=== PATIENT | male | born 1995 | race Two or more races ===

== ENCOUNTER 2017-01-14 19:43 | Emergency (ER) | payer MEDICAID, OTHER ==
[~2017-01-14] VITALS: Ht 177.8 cm; Wt 109.2 kg
[2017-01-14 20:05] VITALS: BP 121/82
[2017-01-14] MEDS ORDERED: SODIUM CHLORIDE 0.9% 1,000ML IVBOLUS ONE (20:30)
[2017-01-14] MEDS ORDERED: ASPIRIN 81 MG TABLET CHEW PO ONE (20:30)
[2017-01-14] MEDS ORDERED: SODIUM CHLORIDE FLUSH 10ML SYR IVF ONE (20:30)
[2017-01-14 20:46] LABS: HEMATOCRIT 52.7 % (39.2-51.8); HEMOGLOBIN 17.9 g/dL (13.7-18.0); WHITE BLOOD COUNT 10.1 x10^3/uL (3.4-10)
[2017-01-14] MEDS ORDERED: ASPIRIN 81 MG TABLET CHEW ONE (20:53)
[2017-01-14 20:59] LABS: BLOOD UREA NITROGEN 13 mg/dL (7-18)
[2017-01-14 21:09] LABS: IS PT STATUS REG ER OR PRE ER? YES
== END 2017-01-14 22:06 | disposition home or self-care (01) ==
LOC: ED 21:45
DX: R42 Dizziness and giddiness (principal)
CPT/HCPCS: 36415; 71020; 80048; 82040; 84484; 85025; 93005; 96360; 96361; 99285; J7030

== ENCOUNTER 2017-01-26 09:00 | Emergency (ER) | payer MEDICAID ==
[~2017-01-26] VITALS: Ht 177.8 cm; Wt 107.5 kg
[2017-01-26] MEDS ORDERED: FAMOTIDINE 20 MG/2 ML ONE (09:58)
[2017-01-26] MEDS ORDERED: SODIUM CHLORIDE FLUSH 10ML SYR IVF ONE (10:00)
[2017-01-26] MEDS ORDERED: SODIUM CHLORIDE 0.9% 1,000ML IVBOLUS ONE (10:00)
[2017-01-26] MEDS ORDERED: FAMOTIDINE 20 MG/2 ML IVPush ONE (10:00)
[2017-01-26 10:24] LABS: HEMATOCRIT 51.7 % (39.2-51.8); WHITE BLOOD COUNT 9.7 x10^3/uL (3.4-10)
[2017-01-26 10:35] LABS: ASPARTATE AMINO TRANSFERASE 21 U/L (15-37); BLOOD UREA NITROGEN 14 mg/dL (7-18)
[2017-01-26 10:38] VITALS: BP 132/89
[2017-01-26 10:40] LABS: IS PT STATUS REG ER OR PRE ER? YES
== END 2017-01-26 11:32 | disposition home or self-care (01) ==
LOC: ED 11:26
DX: R07.89 Other chest pain (principal); K21.0 Gastro-esophageal reflux disease with esophagitis
CPT/HCPCS: 36415; 71020; 80053; 83690; 84484; 85025; 93005; 96361; 96374; 99285; J7030; S0028

== ENCOUNTER 2017-02-25 13:52 | Emergency (ER) | payer MEDICAID ==
[~2017-02-25] VITALS: Ht 177.8 cm; Wt 105.6 kg
[2017-02-25] MEDS ORDERED: OXYMETAZOLINE NASAL SPRAY 0.05%, 15ML ONE (14:50)
[2017-02-25 15:08] LABS: HEMATOCRIT 56.7 % (39.2-51.8); HEMOGLOBIN 19.1 g/dL (13.7-18.0); WHITE BLOOD COUNT 10.5 x10^3/uL (3.4-10)
[2017-02-25] MEDS ORDERED: DEXAMETHASONE 4 MG/ML, 5ML ONE (15:09)
[2017-02-25] MEDS ORDERED: DEXAMETHASONE 4 MG/ML, 1ML IVPush ONE (16:00)
[2017-02-25] MEDS ORDERED: OXYMETAZOLINE NASAL SPRAY 0.05%, 15ML NAS ONE (16:00)
[2017-02-25] MEDS ORDERED: SODIUM CHLORIDE 0.9% 1,000ML IVBOLUS ONE (16:00)
[2017-02-25] MEDS ORDERED: AMPICILLIN/SULBACTAM 3 GM in SODIUM CHLORIDE 0.9% 100 ML IV ONE (16:00)
[2017-02-25 16:22] VITALS: BP 117/62
== END 2017-02-25 16:30 | disposition home or self-care (01) ==
LOC: ED 15:16
DX: J01.00 Acute maxillary sinusitis, unspecified (principal); J00 Acute nasopharyngitis [common cold]; K21.9 Gastro-esophageal reflux disease without esophagitis
CPT/HCPCS: 36415; 76380; 85025; 96365; 96375; 99285; J0295; J1100; J7030

== ENCOUNTER 2017-05-30 22:05 | Emergency (ER) | payer MEDICAID ==
[~2017-05-30] VITALS: Ht 177.8 cm; Wt 102.0 kg
[2017-05-30 22:39] LABS: BASOPHILS # (AUTO) 0.04 x10^3/uL (0-0.1); BASOPHILS % (AUTO) 1 % (0-1); EOSINOPHILS # (AUTO) 0.08 x10^3/uL (0-0.4); EOSINOPHILS % (AUTO) 1 % (1-7); LYMPHOCYTES # (AUTO) 2.48 x10^3/uL (1-3.4); LYMPHOCYTES % (AUTO) 26 % (22-44); MD NO; MEAN CORPUSCULAR HEMOGLOBIN 32.1 pg (27.5-34.5); MEAN CORPUSCULAR HGB CONC 34.2 g/dL (33.2-36.2); MEAN CORPUSCULAR VOLUME 94.1 fL (81-97); MEAN PLATELET VOLUME 10.1 fL (7.4-10.4); MONOCYTES # (AUTO) 0.64 x10^3/uL (0.2-0.8); MONOCYTES % (AUTO) 7 % (2-9); NEUTROPHILS # (AUTO) 6.47 x10^3/uL (1.8-6.8); NEUTROPHILS % (AUTO) 67 % (42-75); PLATELET COUNT 215 x10^3/uL (130-400); RED BLOOD COUNT 5.58 x10^6/uL (4.38-5.82); RED CELL DISTRIBUTION WIDTH 12.4 % (9.4-14.8)
[2017-05-30 22:57] LABS: ALBUMIN 4.6 g/dL (3.4-5.0); CALCIUM 9.2 mg/dL (8.5-10.1); CREATININE 0.95 mg/dL (0.7-1.3)
[2017-05-30] MEDS ORDERED: MAALOX/HYOSCYAMINE/LIDOCAINE 45 ML BTL ONE (23:17)
[2017-05-30 23:22] LABS: ANION GAP 9 mmol/L (5-15); CHLORIDE 103 mmol/L (98-107); TROPONIN I < 0.015 ng/mL (0.000-0.045)
[2017-05-30] MEDS ORDERED: MAALOX/HYOSCYAMINE/LIDOCAINE 45 ML BTL PO ONE (23:30)
[2017-05-31 00:21] VITALS: BP 106/69
== END 2017-05-31 00:23 | disposition home or self-care (01) ==
LOC: ED 23:22
DX: R07.89 Other chest pain (principal); R53.83 Other fatigue; R42 Dizziness and giddiness; K21.9 Gastro-esophageal reflux disease without esophagitis
CPT/HCPCS: 36415; 71046; 80048; 82040; 84484; 85025; 93005; 99285

== ENCOUNTER 2017-08-31 06:52 | Emergency (ER) | payer MEDICAID ==
[~2017-08-31] VITALS: Ht 177.8 cm; Wt 102.8 kg
[2017-08-31 06:54] VITALS: BP 131/93
[2017-08-31] MEDS ORDERED: IBUPROFEN 800 MG TABLET ONE (07:17)
[2017-08-31] MEDS ORDERED: IBUPROFEN 800 MG TABLET PO SCH (07:30)
== END 2017-08-31 08:34 | disposition home or self-care (01) ==
LOC: ED 08:27
DX: S16.1XXA Strain of muscle, fascia and tendon at neck level, initial encounter (principal); S29.012A Strain of muscle and tendon of back wall of thorax, initial encounter; K21.9 Gastro-esophageal reflux disease without esophagitis; V89.2XXA Person injured in unspecified motor-vehicle accident, traffic, initial encounter; Y93.89 Activity, other specified; Y92.89 Other specified places as the place of occurrence of the external cause; Y99.8 Other external cause status
CPT/HCPCS: 72020; 72050; 72072; 99284

== ENCOUNTER 2017-09-29 05:16 | Emergency (ER) | payer MEDICAID ==
[~2017-09-29] VITALS: Ht 177.8 cm; Wt 103.2 kg
[2017-09-29] MEDS ORDERED: ONDANSETRON ODT 4 MG ONE (05:49)
[2017-09-29 05:53] LABS: BASOPHILS # (AUTO) 0.05 x10^3/uL (0-0.1); BASOPHILS % (AUTO) 1 % (0-1); EOSINOPHILS % (AUTO) 1 % (1-7); LYMPHOCYTES # (AUTO) 2.46 x10^3/uL (1-3.4); LYMPHOCYTES % (AUTO) 27 % (22-44); MD NO; MEAN CORPUSCULAR HEMOGLOBIN 31.8 pg (27.5-34.5); MEAN CORPUSCULAR VOLUME 93.5 fL (81-97); MEAN PLATELET VOLUME 9.8 fL (7.4-10.4); MONOCYTES # (AUTO) 0.54 x10^3/uL (0.2-0.8); MONOCYTES % (AUTO) 6 % (2-9); NEUTROPHILS # (AUTO) 6.14 x10^3/uL (1.8-6.8); NEUTROPHILS % (AUTO) 66 % (42-75); PLATELET COUNT 199 x10^3/uL (130-400); RED BLOOD COUNT 5.42 x10^6/uL (4.38-5.82); RED CELL DISTRIBUTION WIDTH 12.8 % (9.4-14.8)
[2017-09-29] MEDS ORDERED: ONDANSETRON ODT 4 MG PO ONE (06:00)
[2017-09-29 06:03] LABS: ALANINE AMINOTRANSFERASE 69 U/L (12-78); ALBUMIN 4.1 g/dL (3.4-5.0); ANION GAP 7 mmol/L (5-15); CALCIUM 9.2 mg/dL (8.5-10.1); CHLORIDE 106 mmol/L (98-107)
[2017-09-29 06:05] LABS: ALKALINE PHOSPHATASE 87 U/L (45-117); BILIRUBIN,TOTAL 0.8 mg/dL (0.2-1.0); TOTAL PROTEIN 7.6 g/dL (6.4-8.2)
[2017-09-29 06:14] LABS: CULTURE INDICATED? NO; MICROSCOPIC NOT IND
[2017-09-29 06:53] VITALS: BP 118/76
== END 2017-09-29 07:49 | disposition home or self-care (01) ==
LOC: ED 07:03
DX: R10.31 Right lower quadrant pain (principal); K21.9 Gastro-esophageal reflux disease without esophagitis
CPT/HCPCS: 36415; 80053; 81003; 85025; 99284; Q0162

== ENCOUNTER 2017-12-07 06:07 | Emergency (ER) | payer MEDICAID ==
[~2017-12-07] VITALS: Ht 177.8 cm; Wt 102.1 kg
[2017-12-07] MEDS ORDERED: ONDANSETRON 2MG/ML, 2ML IVPush ONE (06:30)
[2017-12-07] MEDS ORDERED: MORPHINE SULFATE 4 MG/ML, 1ML IVPush PRN (06:30)
[2017-12-07] MEDS ORDERED: SODIUM CHLORIDE FLUSH 10ML SYR IVF ONE (06:30)
[2017-12-07] MEDS ORDERED: ONDANSETRON 2MG/ML, 2ML ONE (06:37)
[2017-12-07] MEDS ORDERED: MORPHINE SULFATE 4 MG/ML, 1ML ONE (06:37)
[2017-12-07 07:20] LABS: BASOPHILS # (AUTO) 0.05 x10^3/uL (0-0.1); BASOPHILS % (AUTO) 1 % (0-1); EOSINOPHILS # (AUTO) 0.15 x10^3/uL (0-0.4); EOSINOPHILS % (AUTO) 2 % (1-7); LYMPHOCYTES # (AUTO) 3.14 x10^3/uL (1-3.4); LYMPHOCYTES % (AUTO) 34 % (22-44); MD NO; MEAN CORPUSCULAR HEMOGLOBIN 32.1 pg (27.5-34.5); MEAN CORPUSCULAR HGB CONC 34.6 g/dL (33.2-36.2); MEAN CORPUSCULAR VOLUME 92.8 fL (81-97); MEAN PLATELET VOLUME 10.3 fL (7.4-10.4); MONOCYTES # (AUTO) 0.72 x10^3/uL (0.2-0.8); MONOCYTES % (AUTO) 8 % (2-9); NEUTROPHILS # (AUTO) 5.23 x10^3/uL (1.8-6.8); NEUTROPHILS % (AUTO) 56 % (42-75); PLATELET COUNT 201 x10^3/uL (130-400); RED CELL DISTRIBUTION WIDTH 12.5 % (9.4-14.8)
[2017-12-07 07:31] LABS: ALBUMIN 4.2 g/dL (3.4-5.0); ANION GAP 10 mmol/L (5-15); CALCIUM 8.6 mg/dL (8.5-10.1); CHLORIDE 109 mmol/L (98-107)
[2017-12-07 07:35] LABS: MICROSCOPIC INDICATED
[2017-12-07 07:36] LABS: ALANINE AMINOTRANSFERASE 61 U/L (12-78); ALKALINE PHOSPHATASE 104 U/L (45-117); BILIRUBIN,TOTAL 0.5 mg/dL (0.2-1.0); CREATININE 0.77 mg/dL (0.7-1.3); TOTAL PROTEIN 7.7 g/dL (6.4-8.2)
[2017-12-07 07:46] LABS: CULTURE INDICATED? NO
[2017-12-07 08:53] VITALS: BP 106/58
== END 2017-12-07 08:54 | disposition home or self-care (01) ==
LOC: ED 07:42
DX: K21.9 Gastro-esophageal reflux disease without esophagitis (principal)
CPT/HCPCS: 36415; 76700; 80053; 81001; 83690; 85025; 96374; 96375; 99285; J2405

== ENCOUNTER 2018-02-24 07:55 | Emergency (ER) | payer MEDICAID ==
[~2018-02-24] VITALS: Ht 177.8 cm; Wt 102.2 kg
[2018-02-24] MEDS ORDERED: ONDANSETRON ODT 4 MG PO ONE (08:30)
[2018-02-24] MEDS ORDERED: ONDANSETRON ODT 4 MG ONE (08:49)
[2018-02-24] MEDS ORDERED: MAALOX/HYOSCYAMINE/LIDOCAINE 45 ML BTL ONE (08:49)
[2018-02-24 08:52] LABS: BASOPHILS # (AUTO) 0.03 x10^3/uL (0-0.1); BASOPHILS % (AUTO) 0 % (0-1); EOSINOPHILS # (AUTO) 0.12 x10^3/uL (0-0.4); EOSINOPHILS % (AUTO) 2 % (1-7); LYMPHOCYTES # (AUTO) 2.08 x10^3/uL (1-3.4); LYMPHOCYTES % (AUTO) 27 % (22-44); MD NO; MEAN CORPUSCULAR HEMOGLOBIN 31.8 pg (27.5-34.5); MEAN CORPUSCULAR HGB CONC 33.6 g/dL (33.2-36.2); MEAN CORPUSCULAR VOLUME 94.7 fL (81-97); MONOCYTES # (AUTO) 0.43 x10^3/uL (0.2-0.8); MONOCYTES % (AUTO) 6 % (2-9); NEUTROPHILS % (AUTO) 65 % (42-75); PLATELET COUNT 184 x10^3/uL (130-400); RED BLOOD COUNT 5.56 x10^6/uL (4.38-5.82); RED CELL DISTRIBUTION WIDTH 12.9 % (9.4-14.8)
[2018-02-24 09:00] LABS: CULTURE INDICATED? NO; MICROSCOPIC NOT IND
[2018-02-24] MEDS ORDERED: MAALOX/HYOSCYAMINE/LIDOCAINE 45 ML BTL PO ONE (09:00)
[2018-02-24 09:05] LABS: ALANINE AMINOTRANSFERASE 79 U/L (12-78); ALBUMIN 4.2 g/dL (3.4-5.0); ANION GAP 9 mmol/L (5-15); CALCIUM 8.8 mg/dL (8.5-10.1); CHLORIDE 107 mmol/L (98-107)
[2018-02-24 09:08] LABS: ALKALINE PHOSPHATASE 109 U/L (45-117); BILIRUBIN,TOTAL 0.5 mg/dL (0.2-1.0); CREATININE 0.87 mg/dL (0.7-1.3); TOTAL PROTEIN 7.8 g/dL (6.4-8.2)
[2018-02-24 10:14] VITALS: BP 128/78
== END 2018-02-24 10:16 | disposition home or self-care (01) ==
LOC: ED 09:25
DX: K29.00 Acute gastritis without bleeding (principal); K21.9 Gastro-esophageal reflux disease without esophagitis
CPT/HCPCS: 36415; 80053; 81003; 83690; 85025; 99284; Q0162

== ENCOUNTER 2018-03-11 05:55 | Emergency (ER) | payer MEDICAID ==
[~2018-03-11] VITALS: Ht 177.8 cm; Wt 100.5 kg
[2018-03-11] MEDS ORDERED: SODIUM CHLORIDE 0.9% 1,000ML IVBOLUS ONE (06:30)
[2018-03-11] MEDS ORDERED: MECLIZINE CHEWABLE 25 MG TAB ONE (06:30)
[2018-03-11] MEDS ORDERED: MECLIZINE CHEWABLE 25 MG TAB PO ONE (06:30)
[2018-03-11] MEDS ORDERED: ONDANSETRON ODT 4 MG PO ONE (06:30)
[2018-03-11] MEDS ORDERED: ONDANSETRON ODT 4 MG ONE (06:30)
[2018-03-11] MEDS ORDERED: SODIUM CHLORIDE FLUSH 10ML SYR IVF ONE (06:30)
[2018-03-11 08:13] VITALS: BP 123/82
== END 2018-03-11 08:16 | disposition home or self-care (01) ==
LOC: ED 06:59
DX: R42 Dizziness and giddiness (principal); K21.9 Gastro-esophageal reflux disease without esophagitis
CPT/HCPCS: 93005; 96360; 99284; J7030; Q0162

== ENCOUNTER 2018-12-15 07:27 | Emergency (ER) | payer MEDICAID ==
[~2018-12-15] VITALS: Ht 177.8 cm; Wt 96.6 kg
[2018-12-15 07:37] VITALS: BP 131/86
--- NOTE | 2018-12-15 07:40 | NUR ---
PT HAS CO OF LOWER MID ABDOMINAL PAIN SINCE THIS AM. DENIES TENDERNESS TO PALPATION. DENIES N/V/D. PT RESTING COMFORTABLE. VS STABLE. WAITING FOR MD ORDERS.
[2018-12-15] MEDS ORDERED: MORPHINE SULFATE 4 MG/ML, 1ML IVPush PRN (08:00)
[2018-12-15] MEDS ORDERED: SODIUM CHLORIDE FLUSH 10ML SYR IVF ONE (08:00)
[2018-12-15] MEDS ORDERED: ONDANSETRON 2MG/ML, 2ML IVPush ONE (08:00)
[2018-12-15] MEDS ORDERED: ONDANSETRON 2MG/ML, 2ML ONE (08:12)
[2018-12-15] MEDS ORDERED: MORPHINE SULFATE 4 MG/ML, 1ML ONE (08:12)
[2018-12-15 08:17] LABS: BASOPHILS # (AUTO) 0.03 x10^3/uL (0-0.1); BASOPHILS % (AUTO) 0 % (0-1); EOSINOPHILS # (AUTO) 0.19 x10^3/uL (0-0.4); EOSINOPHILS % (AUTO) 3 % (1-7); LYMPHOCYTES # (AUTO) 2.19 x10^3/uL (1-3.4); LYMPHOCYTES % (AUTO) 30 % (22-44); MD NO; MEAN CORPUSCULAR HGB CONC 33.7 g/dL (33.2-36.2); MEAN CORPUSCULAR VOLUME 94.9 fL (81-97); MEAN PLATELET VOLUME 9.5 fL (7.4-10.4); MONOCYTES # (AUTO) 0.52 x10^3/uL (0.2-0.8); MONOCYTES % (AUTO) 7 % (2-9); NEUTROPHILS # (AUTO) 4.47 x10^3/uL (1.8-6.8); NEUTROPHILS % (AUTO) 60 % (42-75); PLATELET COUNT 172 x10^3/uL (130-400); RED BLOOD COUNT 5.27 x10^6/uL (4.38-5.82); RED CELL DISTRIBUTION WIDTH 12.8 % (9.4-14.8)
[2018-12-15 08:27] LABS: ALBUMIN 4.4 g/dL (3.4-5.0); ANION GAP 8 mmol/L (5-15); CALCIUM 8.8 mg/dL (8.5-10.1); CHLORIDE 109 mmol/L (98-107)
[2018-12-15 08:29] LABS: CREATININE 0.95 mg/dL (0.7-1.3)
--- NOTE | 2018-12-15 09:07 | NUR ---
EXPLAINED TO PATIENT NEED FOR UA. PT VERBALIZED UNDERSTANDING
[2018-12-15 09:33] LABS: MICROSCOPIC NOT IND
[2018-12-15 09:37] LABS: CULTURE INDICATED? NO
--- NOTE | 2018-12-15 09:39 | NUR ---
PT AMBULATED TO BATHROOM W STEADY GAIT. . PT STATES ABDOMINAL PAIN DECREASED TO 3/10.
--- NOTE | 2018-12-15 09:52 | NUR ---
Patient/Caregiver given discharge instructions and they have confirmed that they understand the instructions. Patient ambulatory with steady gait.
== END 2018-12-15 10:06 | disposition home or self-care (01) ==
LOC: ED 08:38
DX: N23 Unspecified renal colic (principal)
CPT/HCPCS: 36415; 74176; 80048; 81003; 82040; 85025; 96374; 96375; 99284; J2270; J2405